=== PATIENT | male | born 1965 | race Caucasian/White ===

== ENCOUNTER 2017-04-23 09:02 | Emergency (ER) | payer BC ==
[2017-04-23 10:15] LABS: HEMOGLOBIN 14.3 gm/dl (14.0-17.5); RED BLOOD COUNT 4.81 M/UL (4.20-5.50); WHITE BLOOD COUNT 14.6 K/UL (4.5-11.0)
[2017-04-23 10:27] LABS: BUN/CREATININE RATIO 32 (0-10)
== END 2017-04-23 12:40 | disposition home or self-care (01) ==
LOC: ER1 09:02
PROVIDERS: Emergency Medicine
DX: M54.42 Lumbago with sciatica, left side (principal); G89.29 Other chronic pain; R31.9 Hematuria, unspecified; F17.200 Nicotine dependence, unspecified, uncomplicated; Z79.899 Other long term (current) drug therapy
CPT/HCPCS: 36415; 72131; 80048; 81001; 85025; 87040; 96374; 96375; 96376; 99284; J1100; J2270; J2405

== ENCOUNTER 2017-04-26 13:04 | Emergency (ER) | payer BC ==
[2017-04-26 14:25] LABS: HEMOGLOBIN 15.4 gm/dl (14.0-17.5); RED BLOOD COUNT 5.19 M/UL (4.20-5.50); WHITE BLOOD COUNT 16.4 K/UL (4.5-11.0)
[2017-04-26 14:48] LABS: BUN/CREATININE RATIO 35 (0-10)
== END 2017-04-26 18:40 ==
LOC: ER1 13:04
PROVIDERS: Specialist/Technologist Athletic Trainer
DX: M46.46 Discitis, unspecified, lumbar region (principal)
CPT/HCPCS: 36415; 72157; 72158; 80053; 83605; 85025; 86140; 96361; 96374; 96375; 96376; 99284; A9577; J0696; J2270; J2405; J3370; J7030; J7050